=== PATIENT | male | born 1970 | race Caucasian/White ===

== ENCOUNTER 2017-02-03 19:54 | Emergency (ER) | payer BC, OTHER ==
[2017-02-03] MEDS ORDERED: Clindamycin Phosphate 900 MG in Sodium Chloride 0.9% 100 ML IV ONE (20:13)
[2017-02-03] MEDS ORDERED: Sodium Chloride 0.9% 1,000 ML IV ONE (20:13)
--- NOTE | 2017-02-03 20:16 | EDM.PDOC ---
ED HPI GENERAL MEDICAL PROBLEM - General Chief Complaint: ENT Problem Stated Complaint: SINUS PROBLEMS [id number] Time Seen by Provider: 02/03/17 20:13 Source of Information: Reports: Patient History Limitations: Reports: No Limitations - History of Present Illness INITIAL COMMENTS - FREE TEXT/NARRATIVE: long h/o sinus problem started from dental procedure, right cheek started swelling ~ hour ago. denies F/C. feels uncomfortable. 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 ED EXAM, ENT - Physical Exam Exam: See Below Exam Limited By: No Limitations General Appearance: Alert, WD/WN, No Apparent Distress Ears: Hearing Grossly Normal Mouth/Throat: Normal Inspection, Normal Oropharynx Head: Atraumatic, Other (right cheek swollen erythematous) Neck: Non-Tender, Full Range of Motion Respiratory/Chest: No Respiratory Distress Cardiovascular: Regular Rate, Rhythm GI/Abdominal: Soft, Non-Tender Neurological: Alert, Oriented, Normal Cognition, Normal Gait, No Motor/Sensory Deficits Psychiatric: Normal Affect, Normal Mood Skin: Warm, Dry, Normal Color Lymphatic: No Adenopathy Course - Vital Signs Last Recorded V/S: Last Vital Signs Temp 36.0 C 02/03/17 20:03 Pulse 70 02/03/17 20:03 Resp 16 02/03/17 20:03 BP 132/90 02/03/17 20:03 Pulse Ox 99 02/03/17 20:03 - Orders/Labs/Meds Orders: Active Orders 24 hr Category Date Time Status CULTURE BLOOD [BC] Stat Lab 02/03/17 20:18 Received Sodium Chloride 0.9% [Normal Saline] 1,000 ml Med 02/03/17 20:13 Active IV .BOLUS Medication Orders Sodium Chloride (Normal Saline) 1,000 mls @ 500 mls/hr IV .BOLUS ONE Stop: 02/03/17 22:12 Last Admin: 02/03/17 20:30 Dose: 500 mls/hr Labs: Laboratory Tests 02/03/17 02/03/17 02/03/17 Range/Units 20:18 20:18 20:18 WBC 6.7 (5.0-10.0) 10^3/uL RBC 4.94 (4.6-6.2) 10^6/uL Hgb 14.7 (14.0-18.0) g/dL Hct 43.4 (40.0-54.0) % MCV 87.9 (80-100) fL MCH 29.8 (27.0-34.0) pg MCHC 33.9 (33.0-35.0) g/dL Plt Count 225 (150-450) 10^3/uL Neut % (Auto) 45.9 (42.2-75.2) % Lymph % (Auto) 37.2 (20.5-50.1) % [facility] % (Auto) 8.1 H (2-8) % Eos % (Auto) 8.4 H (1.0-3.0) % Baso % (Auto) 0.4 (0.0-1.0) % Sodium 138 (135-145) mmol/L Potassium 3.6 (3.6-5.0) mmol/L Chloride 102 (101-111) mmol/L Carbon Dioxide 25.0 (21.0-31.0) mmol/L Anion Gap 14.6 BUN 17 (7-18) mg/dL Creatinine 0.8 (0.6-1.3) mg/dL Est Cr Clr Drug Dosing 124.19 mL/min Estimated GFR (MDRD) > 60 BUN/Creatinine Ratio 21.25 Glucose 107 H (74-105) mg/dL Lactic Acid 1.3 (0.5-2.2) mmol/L Calcium 9.8 (8.4-10.2) mg/dl Total Bilirubin 0.7 (0.2-1.0) mg/dL AST 36 (10-42) IU/L ALT 49 (10-60) IU/L Alkaline Phosphatase 56 (42-121) IU/L Total Protein 7.4 (6.7-8.2) g/dl Albumin 4.1 (3.2-5.5) g/dl Globulin 3.3 Albumin/Globulin Ratio 1.24 Meds: Medications Generic Name Dose Route Start Last Admin Trade Name Shawn PRN Reason Stop Dose Admin Sodium Chloride 1,000 mls @ 500 mls/hr 02/03/17 20:13 02/03/17 20:30 Normal Saline IV 02/03/17 22:12 500 mls/hr .BOLUS ONE Administration Discontinued Medications Generic Name Dose Route Start Last Admin Trade Name Freq PRN Reason Stop Dose Admin Clindamycin Phosphate 900 mg/ 106 mls @ 200 mls/hr 02/03/17 20:13 02/03/17 20 :30 Sodium Chloride IV 02/03/17 20:44 200 mls/hr ONETIME ONE Administration - Re-Assessments/Exams Free Text/Narrative Re-Assessment/Exam: 02/03/17 21:11 results discussed with pt. Departure - Departure Time of Disposition: 21:12 Disposition: Home, Self-Care 01 Condition: Good Clinical Impression: Right maxillary sinusitis - Discharge Information Instructions: Sinusitis, Adult, [id number] Forms: ED Department Discharge Additional Instructions: 1) follow up with clinic 2) return if there is any change or concern rx given; clindamycin 150mg qid x 40 vicodin 5/325mg bid prn x 12 - My Orders Last 24 Hours: My Active Orders 02/03/17 20:13 Sodium Chloride 0.9% [Normal Saline] 1,000 ml IV .BOLUS 02/03/17 20:18 CULTURE BLOOD [BC] Stat - Assessment/Plan Last 24 Hours: My Active Orders 02/03/17 20:13 Sodium Chloride 0.9% [Normal Saline] 1,000 ml IV .BOLUS 02/03/17 20:18 CULTURE BLOOD [BC] Stat
[2017-02-03 20:45] LABS: CHLORIDE,CL 102 mmol/L (101-111); SODIUM,NA 138 mmol/L (135-145)
== END 2017-02-03 21:27 | disposition home or self-care (01) ==
LOC: DL.ED 19:54
DX: J32.0 Chronic maxillary sinusitis (principal)
CPT/HCPCS: 36415; 70210; 80053; 83605; 85025; 87040; 96365; 99283; J7030; J7050; S0077

== ENCOUNTER 2023-11-18 06:24 | Day surgery (SDC) | payer BC ==
[~2023-11-18 06:24] MED LIST: Midazolam 1 MG/ML 2 ML SDV ONE; fentaNYL 100 MCG/2 ML SDV ONE
[2023-11-18] MEDS ORDERED: Midazolam 1 MG/ML 2 ML SDV IV ONE (06:25)
[2023-11-18] MEDS ORDERED: fentaNYL 100 MCG/2 ML SDV IV ONE (06:25)
[2023-11-18] MEDS: Dextrose 5%-0.45% NaCl 1,000 ML IV SCH (06:54)
[2023-11-18] MEDS: fentaNYL 100 MCG/2 ML SDV IV ONE ×2 (07:54→07:55)
[2023-11-18] MEDS: Midazolam 1 MG/ML 2 ML SDV IV ONE ×6 (07:55→08:02)
== END 2023-11-18 09:25 | disposition home or self-care (01) ==
LOC: DL.ENDO 06:24
PROVIDERS: ATTEND Internal Medicine Gastroenterology
DX: K64.8 Other hemorrhoids (principal)
CPT/HCPCS: 45378; J2250; J3010; J7799